=== PATIENT | male | born 1955 | race Caucasian/White ===

== ENCOUNTER 2019-09-22 11:27 | Emergency (ER) | payer OTHER, SELFPAY ==
[2019-09-22 11:34] VITALS: BP 148/85; PULSE 95; RESP 15; TEMP 37.1; O2SAT 95; BMI 30.8
[2019-09-22 12:23] VITALS: BP 146/77; PULSE 92; RESP 20; O2SAT 95
--- NOTE | 2019-09-22 12:29 | ED.URI ---
HPI - URI/Sore Throat <Dorian MoralesSmith [facility] - Last Filed: 09/22/19 12:37> General Chief Complaint: Upper Respiratory Symptoms Stated Complaint: SINUS INFECTION Time Seen by Provider: 09/22/19 11:32 Source: patient Mode of arrival: Ambulatory Limitations: no limitations History of Present Illness HPI Narrative: This is a 64-year-old male, nonsmoker, who presents to ED with near 10 day duration of nasal congestion, head pressure, ear pressure, copious amount of green/yellowish thick nasal discharge. Patient denies known fever, chills, nausea or vomiting. Severe headache with bending forward motion. Patient denies known exposure to illness or recent foreign travel. Patient has not taken any antibiotic medication recently. Patient had used nasal rinses last night which caused increasing in discomfort. Patient has been using guaifenesin and Tylenol at home for discomfort. Related Data Previous Rx's Medication Instructions Recorded doxycycline hyclate 100 mg PO BID 7 Days #14 cap 09/22/19 Allergies Allergy/AdvReac Type Severity Reaction Status Date / Time Penicillins Allergy Verified 09/22/19 11:37 Review of Systems <[facility] - Last Filed: 09/22/19 12:37> Review of Systems Narrative: General: Denies fever, chills, (+) fatigue, malaise, sweats. HEENT: See HPI Respiratory: Denies dyspnea, (+) cough with nasal discharge, wheezing, hemoptysis, sputum. Cardiovascular: Denies chest pain, palpitations, orthopnea, edema. Gastrointestinal: Denies nausea, vomiting, abdominal pain, diarrhea, constipation, melena. : Denies dysuria, frequency, incontinence, hematuria, urinary retention. Musculoskeletal: Denies weakness, joint pain or bony pain. Skin: Denies rash, skin lesions, or other. Neurologic: Denies weakness, headache, numbness, change in speech, confusion, seizures, incoordination. Psychiatric: No concerning psychosocial issues. 12-point review of systems is negative except for those stated above. Patient History <Dorian BurciagaSmith [facility] - Last Filed: 09/22/19 12:37> Social History Smoking Status: Unknown if ever smoked Smoking Status: Unknown if ever smoked alcohol intake frequency: holidays/special occasions only Substance Use Type: does not use Exam <Dorian THERESA WatsonP - Last Filed: 09/22/19 12:37> Narrative Exam Narrative: GEN: Alert, oriented x 3, ill appearing and nourished, and in no acute distress. Head: Normal cephalic, atraumatic. No scalp or temporal tenderness, palpable mass or rash. EYES: Pupils are equal, round, and reactive to light and accommodation. Extraocular muscles are intact bilaterally. There is no subconjunctival hemorrhage, exudate and sclera non-icteric. ENT: Bilateral auditory canals and tympanic membranes clear injected withdrawal appearing. Hearing grossly intact. Nose without bleeding but with purulent discharge. No deviation appreciated. Turbinates severely edematous and red. Facial sinuses tender to light palpation in maxillary, frontal, ethmoid region. Mucous membrane moist, no mucosal lesion. Throat without erythema, tonsillar hypertrophy or exudate. Uvula in midline, airway patent. Voice changed due to nasal congestion. Neck: Trachea in midline. No JVD, non-tender without lymphadenopathy. No masses or thyroid megaly. Supple, non-tender and no meningeal signs. CARDIAC: Normal regular rate and rhythm without murmurs, gallops, or rubs. No chest wall tenderness. No peripheral edema, cyanosis or pallor. Capillary refill is less than 2 seconds. RESPIRATORY: Lungs are clear to auscultate bilaterally. No cough, wheezes, rales, or rhonchi. No stridor, respiratory distress, increase work of breathing, or accessary muscle used. ABD: Abdomen soft, nontender and non-distended. No guarding or rebound tenderness to palpate. Bowel sounds are normal in all 4 quadrants. There is no palpable masses or organomegaly. EXT: Full painless ROM of all extremities with no loss of sensation, strength, effusion or edema. SKIN: Warm, dry, normal color for patient. No erythema, lesions or rash over visible areas. BACK: Nontender without deformity or crepitance. No flank tenderness. NEUROLOGICAL: Alert and oriented to place, time and person. Sensation and motor function intact bilaterally. No facial droops, dysphasia. PSYCHIATRIC: Good judgement and reason, without hallucinations, abnormal affect or abnormal behaviors during the examination. Initial Vital Signs Initial Vital Signs: Vital Signs Temperature 98.7 F 09/22/19 11:34 Pulse Rate 95 H 09/22/19 11:34 Respiratory Rate 15 09/22/19 11:34 Blood Pressure 148/85 H 09/22/19 11:34 Pulse Oximetry 95 09/22/19 11:34 <Antonio Beach DO - Last Filed: 09/22/19 17:52> Initial Vital Signs Initial Vital Signs: Vital Signs Temperature 98.7 F 09/22/19 11:34 Pulse Rate 95 H 09/22/19 11:34 Respiratory Rate 15 09/22/19 11:34 Blood Pressure 148/85 H 09/22/19 11:34 Pulse Oximetry 95 09/22/19 11:34 Scores <[facility] - Last Filed: 09/22/19 12:37> GCS Norma coma scale eye opening: Spontaneous [place] coma scale verbal response: Orientated [place] coma scale motor response: Obey commands [place] coma scale total score: 15 Course <[facility] - Last Filed: 09/22/19 12:37> Vital Signs Vital signs: Vital Signs - 8 hr 09/22/19 11:34 09/22/19 12:23 Temperature 98.7 F Pulse Rate 95 H 92 H Respiratory Rate 15 20 Blood Pressure 148/85 H 146/77 H Pulse Oximetry 95 95 <Antonio Beach DO - Last Filed: 09/22/19 17:52> Vital Signs Vital signs: Vital Signs - 8 hr 09/22/19 11:34 09/22/19 12:23 Temperature 98.7 F Pulse Rate 95 H 92 H Respiratory Rate 15 20 Blood Pressure 148/85 H 146/77 H Pulse Oximetry 95 95 MDM - URI/Sore Throat <[facility] - Last Filed: 09/22/19 12:37> Differential Diagnosis Differential diagnosis: Likely upper respiratory infection, otitis media, sinusitis and viral infection Medical Records Attestation: I reviewed the patient's medical records. [facility] Narrative Medical decision making narrative: This is a 64-year-old male who has sinus congestion, pain, headache for near 10 days. Physical exam indicates severely edematous and erythematous turbinates with purulent discharge. Facial sinuses are tender with light palpation. Patient has been taking [id number] Tylenol and guaifenesin for his symptoms before coming into ED. The patient was treated with doxycycline 100 mg b.i.d. dose for 7 days given patient's duration of illness and physical exam consistent with acute sinusitis. Patient has allergy reaction to penicillin and elected to treat patient with doxycycline. Patient advised to use Flonase, sinus rinses, [id number] Tylenol and or Motrin as needed for discomfort and patient's symptoms management. Return precautions were discussed with the patient and patient verbalized understanding and in agreement with the treatment plan. Discharge Plan Departure Patient Disposition: Home Clinical Impression: Sinusitis Qualifiers: Sinusitis location: unspecified location Chronicity: acute Recurrence: non-recurrent Qualified Code(s): J01.90 - Acute sinusitis, unspecified Discharge Date/Time: 09/22/19 12:20 Instructions: DI for Sinusitis Activity Restrictions/Additional Instructions: You have been diagnosed with [acute sinus infection.]. What to do: *Take your medications as directed. Start doxycycline twice a day for next 7 days. This medication can cause sun sensitivity so please take measures. You can take [id number] Tylenol and or Motrin as needed for discomfort. Please take Motrin with food for GI discomfort. Please use [id number] Flonase a spray in each nostril for twice a day for nasal congestion, swelling. Nasal rinses may help with her symptoms as well. *Follow up with your primary care provider in 2-3 days, call for an appointment. Let them know you were seen in the ED and that we asked you to be seen in follow up. *Return to ED if you have any new, worsening, or concerning symptoms, such as [chest pain, breathing difficulty, unable to tolerate fluids, increasing redness/warmth in the face, fever not managed with Tylenol and or Motrin or any acute concerns]. Prescriptions: New doxycycline hyclate 100 mg capsule 100 mg PO BID 7 Days Qty: 14 RF: 0 Referrals: Stephen Cardoso PA-C [Primary Care Provider] - ED Sign-out <ANURAG Moon - Last Filed: 09/22/19 12:37> Cosign ED Attending Cosemiliaature Attestation: I was immediately available in the department for consultation. This documentation has been reviewed and I agree with assessment and plan. Supervised by ANURAG Moon <Antonio Beach DO - Last Filed: 09/22/19 17:52> Sign Out Provider Sign Out Attestation: I was immediately available in the department for consultation. This documentation has been reviewed and I agree with assessment and plan. Supervised by Antonio Beach,
== END 2019-09-22 12:20 | disposition home or self-care (01) ==
PROVIDERS: Emergency Provider Nurse Practitioner Family; PCP Physician Assistant
DX: J01.90 Acute sinusitis, unspecified (principal)
CPT/HCPCS: 99281; 99282